=== PATIENT | female | born 1985 | race Caucasian/White ===

== ENCOUNTER 2021-10-05 22:22 | Emergency (ER) | payer OTHER ==
[~2021-10-05] VITALS: Ht 157.5 cm; Wt 86.2 kg
[2021-10-05 22:33] VITALS: BP 139/73
== END 2021-10-05 23:25 | disposition home or self-care (01) ==
LOC: ER 22:22
DX: M25.572 Pain in left ankle and joints of left foot (principal); I10 Essential (primary) hypertension; E11.9 Type 2 diabetes mellitus without complications; K21.9 Gastro-esophageal reflux disease without esophagitis; Z91.010 Allergy to peanuts